=== PATIENT | female | born 1995 | race Two or more races ===

== ENCOUNTER 2018-12-02 11:23 | Emergency (ER) | payer OTHER ==
[~2018-12-02] VITALS: Ht 160 cm; Wt 49.9 kg
[2018-12-02] MEDS ORDERED: HYDROcodone/APAP 5/325MG 1 TAB TABLET PO ONE (12:00)
[2018-12-02] MEDS ORDERED: ORPHENADRINE CITRATE 60 MG/2 ML VIAL. IM ONE (12:00)
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
[2018-12-02] MEDS ORDERED: IBUP-1007 PO (12:49)
[2018-12-02] MEDS ORDERED: HYDR-3164 PO (12:49)
[2018-12-02] MEDS ORDERED: ORPH100T PO (12:49)
[2018-12-02 13:15] VITALS: BP 118/78
== END 2018-12-02 13:32 | disposition home or self-care (01) ==
LOC: ER 11:23
DX: R51 Headache (principal); V47.5XXA Car driver injured in collision with fixed or stationary object in traffic accident, initial encounter; Y93.89 Activity, other specified; Y92.410 Unspecified street and highway as the place of occurrence of the external cause; Y99.8 Other external cause status
CPT/HCPCS: 70450; 71046; 72125; 81025; 96372; 99285; J2360